=== PATIENT | female | born 1990 | race Two or more races ===

== ENCOUNTER 2024-02-13 12:23 | Emergency (ER) | payer BC, OTHER ==
[~2024-02-13] VITALS: Ht 162.6 cm; Wt 68.8 kg
[2024-02-13 13:08] VITALS: BP 112/73; PULSE 71; RESP 16; TEMP 98.9; O2SAT 99
== END 2024-02-13 15:03 | disposition home or self-care (01) ==
LOC: ER 12:23
DX: S86.811A Strain of other muscle(s) and tendon(s) at lower leg level, right leg, initial encounter (principal); X58.XXXA Exposure to other specified factors, initial encounter; Y93.01 Activity, walking, marching and hiking; Y92.89 Other specified places as the place of occurrence of the external cause; Y99.8 Other external cause status
CPT/HCPCS: 93971

== ENCOUNTER 2024-06-01 20:42 | Emergency (ER) | payer BC ==
[~2024-06-01] VITALS: Ht 162.6 cm; Wt 68.4 kg
[2024-06-01] MEDS ORDERED: METH4PAK PO (23:29)
[2024-06-01] MEDS ORDERED: AZIT500T66 PO (23:29)
--- NOTE | 2024-06-01 23:31 | ED.PDOC ---
Eye-HPI HPI Comments This is a 34-year-old female presents to the ED chief complaint sore throat x6 days. Patient reports related symptoms of left-sided neck pain difficulty swallowing and pain shooting from her throat lead to left side of neck up into her left ear and rastafari. Taking [id number] relief measures without any improvement. Denies shortness of breath chest pain difficulty breathing, fever or chills. Chief Complaint: Earache Time Seen by MD: 21:21 Primary Care Provider: [facility] Notes: Nurses Notes, Medications, Allergies Allergies: Coded Allergies: NO KNOWN ALLERGIES (Unverified , 02/13/24) Home Meds Active Scripts Methylprednisolone (Medrol Dosepak) 4 Mg Brett, 4 MG PO UD for 6 Days, #21 TAB UAD Prov:BETY MORROW [employer] 06/01/24 Azithromycin (Azithromycin) 500 Mg Tab, 1 TAB PO DAILY for 5 Days, #5 TAB Prov:BETY MORROW [facility] 06/01/24 Mode of Arrival: Ambulatory Past Medical History PAST MEDICAL HISTORY: Denies Surgical History: Denies all surgeries ASSEMBLER 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 History Family History Family History: Reviewed,noncontributory to illness Social History Smoker: Non-Smoker Alcohol: Denies ETOH Use Drugs: Denies Drug Use Constitutional: denies: chills, diaphoresis, fatigue, fever, malaise, sweats, weakness, others EENTM: reports: ear pain, throat pain, throat swelling; denies: blurred vision, double vision, ear bleeding, ear discharge, ear drainage, ear ringing, eye pain, eye redness, hearing loss, mouth pain, mouth swelling, nasal discharge, nose bleeding, nose congestion, nose pain, photophobia, tearing, voice changes, others Respiratory: denies: cough, hemoptysis, orthopnea, SOB at rest, shortness of breath, SOB with excertion, stridor, wheezing, others Cardiovascular: denies: chest pain, dizzy spells, diaphoresis, Dyspnea on exertion, edema, irregular heart beat, left arm pain, lightheadedness, palpitati ons, PND, syncope, others Gastrointestinal: denies: abdomen distended, abdominal pain, blood streaked bowels, constipated, diarrhea, dysphagia, difficulty swallowing, hematemesis, melena, nausea, poor appetite, poor fluid intake, rectal bleeding, rectal pain, vomiting, others Genitourinary: denies: abnormal vagina bleeding, burning, dyspareunia, dysuria, flank pain, frequency, hematuria, incontinence, pain, , vagina discharge, urgency, others Neurological: denies: dizziness, fainting, headache, left sided numbness, left sided weakness, numbness, paresthesia, pre-existing deficit, right sided numbness, right sided weakness, seizure, speech problems, tingling, tremors, weakness, others Musculoskeletal: denies: back pain, gout, joint pain, joint swelling, muscle pain, muscle stiffness, neck pain, others Integumetry: denies: bruises, change in color, change in hair/nails, dryness, laceration, lesions, lumps, rash, wounds, others Allergic/Immunocompromised: denies: Difficulty Healing, Frequent Infections, Hives, Itching, others Hematologic/Lymphatic: denies: anemia, blood clots, easy bleeding, easy bruisin g, swollen glands, others Endocrine: denies: excessive hunger, excessive sweating, excessive thirst, excessive urination, flushing, intolerance to cold, intolerance to heat, unexplained weight gain, unexplained weight loss, others Psychiatric: denies: anxiety, bipolar disorder, depression, hopeless, panic disorder, schizophrenia, sleepless, suicidal, others Physical Exam General Appearance: No Apparent Distress, Normal HEENT: Pharyngeal Erythema, TMs Normal, Other (Tonsils erythemic grade 4 without exudate) Neck: Full Range of Motion, Non-Tender Respiratory: Lungs Clear, No Respiratory Distress, Normal Breath Sounds Cardiovascular: No Edema, No JVD, No Murmur, No Gallop, Normal Peripheral Pulses, Regular Rate/Rhythm Breast Exam: Deferred Gastrointestinal: No Organomegaly, Non Tender, No Pulsatile Mass, Normal Bowel Sounds, Soft Genitalia: Deferred Pelvic: Deferred Rectal: Deferred Extremities: Normal capillary refill, Normal inspection, Normal range of motion, Non-tender, No pedal edema Musculoskeletal : Apperance: Normal Neurologic: Alert, metal technician II-XII nml as Tested, No Motor Deficits, Normal Affect, Normal Mood, No Sensory Deficits Cerebellar Function: Normal Reflexes: Normal Skin: Dry, Normal Color, Warm Lymphatic: Cervical Adenopathy (L), Cervical Adenopathy (R), No Adenopathy Was a procedure done? Was a procedure done?: No EENT DIFF Eye: N/A Sore Throat: Scotty's Angina, Peritonsillar Abscess, Peritonsillar Cellulitis, Pharyngitis, Streptococcal, Viral Pharyngitis, URI X-Ray, Labs, Meds, VS Vital Signs Date Time Temp Pulse Resp B/P (MAP) Pulse Ox O2 Delivery O2 Flow Rate FiO2 06/01/24 23:40 98.1 61 19 106/64 (78) 100 98.1 06/01/24 23:40 61 19 100 Room Air 06/01/24 21:20 98.1 73 18 103/70 (81) 98 X-Ray, Labs, Meds, VS Comment Likely bacterial with cervical adenopathy. Start patient on trial of antibiotics along with Medrol Dosepak. Advised to rest increase p.o. fluids with electrolytes [id number] Tylenol or Motrin as needed for pain or fever. Follow up with your PCP in 2-3 days as advised and as needed. ER return precautions given patient agrees with discharge plan of care. Time of 1ST Reevaluation: 00:29 Reevaluation 1ST: Improved Patient Education/Counseling: Diagnosis, Treatment, Prognosis, Need For Follow Up Family Education/Counseling: No Family Present Departure 1 Departure Time of Disposition: 23:30 Impression: Primary Impression: Acute tonsillitis Qualified Codes: J03.90 - Acute tonsillitis, unspecified Disposition: 01 HOME / SELF CARE / HOMELESS Condition: Stable e-Prescriptions Methylprednisolone (Medrol Dosepak) 4 Mg Brett 4 MG PO UD for 6 Days, #21 TAB UAD Prov: BETY MORROW 06/01/24 Azithromycin (Azithromycin) 500 Mg Tab 1 TAB PO DAILY for 5 Days, #5 TAB Prov: BETY MORROW 06/01/24 Discharged With: Self Critical Care Note Critical Care Time?: No Stability Stability form required: BETY Ballard Jun 01, 2024 23:30
[2024-06-01 23:40] VITALS: BP 106/64; PULSE 61; RESP 19; TEMP 98.1; O2SAT 100
== END 2024-06-02 00:06 | disposition home or self-care (01) ==
LOC: ER 20:42
DX: J03.90 Acute tonsillitis, unspecified (principal)